=== PATIENT | male | born 1995 | race African-American/Black ===

== ENCOUNTER 2017-09-28 17:12 | Emergency (ER) | payer OTHER | END 2017-09-28 19:54 | disposition other institution (70) | LOC: ED 17:12 | DX: Z02.89 Encounter for other administrative examinations (principal) ==

== ENCOUNTER 2017-09-28 17:12 | Emergency (ER) | payer SELFPAY ==
[~2017-09-28] VITALS: Ht 177.8 cm; Wt 68.0 kg
[2017-09-28 17:17] VITALS: Ht 177.8 cm; Wt 68.0 kg
[2017-09-28 19:54] VITALS: BP 112/71
== END 2017-09-28 19:54 | disposition other institution (70) ==
LOC: ED 17:12
DX: S61.512A Laceration without foreign body of left wrist, initial encounter (principal); W27.2XXA Contact with scissors, initial encounter; Y93.89 Activity, other specified; Y92.89 Other specified places as the place of occurrence of the external cause; Y99.8 Other external cause status
CPT/HCPCS: 90715; J2001

== ENCOUNTER 2018-08-30 18:51 | Emergency (ER) | payer OTHER ==
[~2018-08-30] VITALS: Ht 180.3 cm; Wt 66.3 kg
[2018-08-30 19:06] VITALS: Ht 180.3 cm; Wt 66.3 kg
[2018-08-30 20:10] VITALS: BP 111/70
== END 2018-08-30 20:10 | disposition home or self-care (01) ==
LOC: ED 18:51
DX: J02.0 Streptococcal pharyngitis (principal); Z87.442 Personal history of urinary calculi